=== PATIENT | female | born 1985 | race Caucasian/White ===

== ENCOUNTER 2018-09-18 15:46 | Emergency (ER) | payer OTHER ==
[~2018-09-18] VITALS: Ht 152.4 cm; Wt 78.0 kg
[2018-09-18 16:10] VITALS: BP 131/79
[2018-09-18 20:20] VITALS: BP 129/90
== END 2018-09-18 20:20 | disposition home or self-care (01) ==
LOC: MED 15:46
DX: J06.9 Acute upper respiratory infection, unspecified (principal)
CPT/HCPCS: 71046; 99283